=== PATIENT | female | born 1995 | race Caucasian/White ===

== ENCOUNTER 2017-02-12 22:32 | Emergency (ER) | payer OTHER ==
[~2017-02-12] VITALS: Ht 167.6 cm; Wt 70.6 kg
[~2017-02-12 22:32] MED LIST: KEFLEX500 MG PO; PERCOCET 5/31 TABLET PO
[2017-02-12 23:52] VITALS: BP 121/73
== END 2017-02-12 23:53 | disposition home or self-care (01) ==
LOC: EME 22:32
PROC: 3E0T3BZ Introduction of Anesthetic Agent into Peripheral Nerves and Plexi, Percutaneous Approach (ICD-10-PCS; principal; 2017-02-12)
DX: K08.89 Other specified disorders of teeth and supporting structures (principal)
CPT/HCPCS: 99281; 99283